=== PATIENT | female | born 1935 | race Caucasian/White ===

== ENCOUNTER 2018-12-30 14:40 | Emergency (ER) | payer MEDICARE, OTHER ==
[2018-12-30] MEDS ORDERED: SODIUM CHLORIDE 0.9% FLUSH 10 ML SOL IV PRN (14:47)
[2018-12-30] MEDS ORDERED: NITROGLYCERIN 0.4 MG TAB SL PRN (14:47)
[2018-12-30] MEDS ORDERED: MORPHINE SULFATE 10 MG/ML SOL IV PRN (14:47)
[2018-12-30 15:00] VITALS: TEMP 97.7
[2018-12-30 15:09] LABS: BASOPHILS % (AUTO) 1 % (0-3); EOSINOPHILS % (AUTO) 2 % (0-9); HEMATOCRIT 43 % (35-47); HEMOGLOBIN 13.8 gm/dl (12.0-15.5); INR 1.1 (0.87-1.13); LYMPHOCYTES % (AUTO) 36.2 % (10-50); MEAN CORPUSCULAR HEMOGLOBIN 32.3 pg (27.0-32.0); MONOCYTES % (AUTO) 7.2 % (0-12); NEUTROPHILS % (AUTO) 54.1 % (37-80)
[2018-12-30 15:11] LABS: MEAN CORPUSCULAR VOLUME 101 fL (81-99)
[2018-12-30 15:14] LABS: BLOOD UREA NITROGEN 13 mg/dl (7-18); CALCIUM 8.7 mg/dl (8.5-10.1); CARBON DIOXIDE 32.1 mEq/L (21-32); CHLORIDE 98 mMol/L (98-107); CREATINE KINASE 48 U/L (26-192); CREATININE 0.71 mg/dl (0.60-1.00); GLUCOSE 136 mg/dl (74-106); TROP I < 0.017 ng/ml (0.000-0.056)
[2018-12-30] MEDS ORDERED: SODIUM CHLORIDE 0.9% 1000ML 1,000 ML IV ONE (15:26)
[2018-12-30 17:37] LABS: APPEARANCE,URINE Slightly Cloudy; BILIRUBIN,URINE NEGATIVE (NEGATIVE); COLOR,URINE Yellow; GLUCOSE, URINE (UA) NEGATIVE (NEGATIVE); KETONES,URINE NEGATIVE (NEGATIVE); LEUKOCYTE ESTERASE ,URINE 2+ (NEGATIVE); NITRATE,URINE POSITIVE (NEGATIVE); OCCULT BLOOD,URINE TRACE LYSED (NEG-TRACE); UROBILINOGEN,URINE 0.2 (0.2-1.0 EU)
[2018-12-30 17:40] LABS: RBC,URINE 0-2 (0-3AV/HPF)
[2018-12-30 17:41] LABS: BACTERIA 4+ (< 1+); CRYSTALS NEGATIVE (0-3 AVE/HPF); WBC,URINE TNTC (0-5AV/HPF)
[2018-12-30 18:49] VITALS: BP 137/74; PULSE 74; RESP 22; O2SAT 94
== END 2018-12-30 17:40 | disposition home or self-care (01) | DRG 312 ==
LOC: ED 14:40
DX: R55 Syncope and collapse (principal); N39.0 Urinary tract infection, site not specified; R53.1 Weakness; R42 Dizziness and giddiness
CPT/HCPCS: 36415; 71045; 80048; 81001; 82550; 83880; 84484; 85025; 85610; 85730; 87077; 87088; 87186; 93005; 96365; 99283; 99285